=== PATIENT | male | born 1970 | race Caucasian/White ===

== ENCOUNTER 2016-12-24 14:30 | Emergency (ER) | payer MEDICAID, OTHER ==
[~2016-12-24] VITALS: Ht 182.9 cm; Wt 112.0 kg
[2016-12-24 15:36] VITALS: Ht 182.9 cm; Wt 112.0 kg
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
[2016-12-24] MEDS ORDERED: DIPHTH/TET/ACEL PERTUSS (ADULT) 0.5 ML VIAL IM* ONE (17:00)
--- NOTE | 2016-12-24 18:16 | RADRPT ---
PROCEDURE: XR Hand. CLINICAL INDICATION: Hand pain TECHNIQUE: Three views of the right hand were obtained. COMPARISON: No prior studies are available for comparison. FINDINGS: The bones of the hand appear intact, with no evidence of fracture, dislocation, or subluxation. The joint spaces are preserved. Bone mineralization is normal. There is a healed post fracture deformity of the fourth metacarpal. Dorsal soft tissue swelling is seen. IMPRESSION: 1. No acute osseous abnormality. 2. Dorsal soft tissue swelling. RPTAT: EE .Atif Rivas MD, MD Date Time Electronically viewed and signed by .Atif Rivas MD, on 12/24/2016 18:15 .d/
[2016-12-24] MEDS ORDERED: CEPH-443 PO (18:37)
[2016-12-24] MEDS ORDERED: IBUP-1542 PO (18:37)
== END 2016-12-24 18:47 | disposition home or self-care (01) ==
LOC: FTE 14:30
DX: L03.113 Cellulitis of right upper limb (principal); Z23 Encounter for immunization
CPT/HCPCS: 73130; 90471; 90715; Z7502